=== PATIENT | female | born 2005 | race Caucasian/White ===

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

== ENCOUNTER 2024-01-21 16:46 | Outpatient (CLI) | payer MEDICAID, SELFPAY ==
[2024-01-24 13:10] LABS: TB Interpretation Negative (Negative); TB1 Ag minus Nil 0.06 IU/ml
== END 2024-01-21 16:47 | disposition home or self-care (01) ==
LOC: LBO 16:47
PROVIDERS: PCP Nurse Practitioner Family; Visit Provider Student in an Organized Health Care Education/Training Program
DX: Z11.1 Encounter for screening for respiratory tuberculosis (principal)
CPT/HCPCS: 36415; 86480

== ENCOUNTER 2024-10-07 07:18 | Emergency (ER) | payer MEDICAID, SELFPAY ==
[2024-10-07 07:27] VITALS: BP 120/80; PULSE 105; RESP 16; TEMP 36.8; O2SAT 99
[2024-10-07 07:31] VITALS: BP 120/80; PULSE 105; RESP 16; TEMP 36.8; O2SAT 99
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
== END 2024-10-07 08:18 | disposition home or self-care (01) ==
PROVIDERS: Emergency Provider Emergency Medicine; PCP Nurse Practitioner Family
DX: J06.9 Acute upper respiratory infection, unspecified (principal); R07.0 Pain in throat
CPT/HCPCS: 99283; 99282; 87880; 87081